=== PATIENT | female | born 1995 | race Caucasian/White ===

== ENCOUNTER 2020-05-21 08:55 | Outpatient (REF) | payer OTHER, SELFPAY ==
[2020-05-22 02:28] LABS: CT PCR NOT DETECTED (Not Detect.); NG PCR NOT DETECTED (Not Detect.)
[2020-05-27 03:12] LABS: HPV 16 RNA NOT DETECTED (NOT DETECTED); HPV mRNA E6/E7 rflx Detected (Not Detected)
== END 2020-05-21 08:56 | disposition home or self-care (01) ==
LOC: HO.LAB 08:55
PROVIDERS: PCP Internal Medicine; Visit Provider Advanced Practice Midwife
DX: Z01.419 Encounter for gynecological examination (general) (routine) without abnormal findings (principal); Z20.2 Contact with and (suspected) exposure to infections with a predominantly sexual mode of transmission; R87.610 Atypical squamous cells of undetermined significance on cytologic smear of cervix (ASC-US); Z30.40 Encounter for surveillance of contraceptives, unspecified
CPT/HCPCS: 87491; 87591; 87624; 87625; 88141; 88142

== ENCOUNTER 2020-07-14 12:02 | Outpatient (REF) | payer OTHER, SELFPAY | END 2020-07-14 12:03 | disposition home or self-care (01) | LOC: HO.LAB 12:02 | PROVIDERS: PCP Internal Medicine; Visit Provider Internal Medicine | DX: Z20.828 Contact with and (suspected) exposure to other viral communicable diseases (principal) | CPT/HCPCS: 36415; C9803; U0003 ==

== ENCOUNTER 2020-07-21 16:26 | Outpatient (REF) | payer OTHER, SELFPAY | END 2020-07-21 16:27 | disposition home or self-care (01) | LOC: HO.LAB 16:26 | PROVIDERS: Visit Provider Internal Medicine | DX: Z20.822 Contact with and (suspected) exposure to COVID-19 (principal) | CPT/HCPCS: 36415; C9803; U0003 ==

== ENCOUNTER 2020-09-02 14:51 | Outpatient (REF) | payer OTHER, SELFPAY | END 2020-09-02 14:52 | disposition home or self-care (01) | LOC: HO.LAB 14:51 | PROVIDERS: PCP Internal Medicine; Visit Provider Obstetrics & Gynecology | DX: R87.610 Atypical squamous cells of undetermined significance on cytologic smear of cervix (ASC-US) (principal); R87.810 Cervical high risk human papillomavirus (HPV) DNA test positive; F41.8 Other specified anxiety disorders | CPT/HCPCS: 57454; 88305; 88342; 88360 ==

== ENCOUNTER → 2021-04-08 08:45 | Outpatient (BNVA) | payer OTHER, SELFPAY | PROVIDERS: PCP Internal Medicine; Visit Provider Nurse Practitioner ==

== ENCOUNTER 2021-04-21 10:07 | Outpatient (REF) | payer OTHER, SELFPAY ==
[2021-04-21 11:03] LABS: MANUAL DIFF FLAG NO
[2021-04-21 11:36] LABS: Basophils Percent Auto 0.3 % (0-2); Eosinophils Absolute Auto 0.2 X10*3/uL (0.0-0.4); Eosinophils Percent Auto 2.2 % (0-4); Hemoglobin 12.8 g/dl (12.0-16.0); Imm Gran Abs Auto 0.02 X10*3/uL (0.00-0.03); Imm Gran Pct Auto 0.2 % (0.0-0.4); Lymphocytes Absolute Auto 1.9 X10*3/uL (1.2-4.9); Lymphocytes Percent Auto 21.3 % (20-40); Mean Corpuscular HGB Conc 33.7 g/dl (31.0-35.0); Mean Corpuscular Volume 80.2 fL (80-98); Mean Platelet Volume 12.2 fL (9.4-12.3); Monocytes Absolute Auto 0.5 X10*3/uL (0.1-1.2); Monocytes Percent Auto 5.6 % (2-11); Neutrophils Absolute Auto 6.2 X10*3/uL (2.0-8.3); Neutrophils Percent Auto 70.4 % (45-73); Platelet Count 251 X10*3/uL (160-400); Red Blood Count 4.74 X10*6/uL (4.20-5.50); Red Cell Distribution Width 12.3 % (11.0-16.0); White Blood Count 8.8 X10*3/uL (4.8-10.8)
[2021-04-21 12:01] LABS: Alanine Aminotransferase 88 U/L (0-31); Albumin Level 4.3 g/dL (3.5-5.0); Alkaline Phosphatase 75 U/L (39-117); Anion Gap 16 (12-20); Aspartate Amino Transferase 57 U/L (5-31); Bilirubin Total 0.5 mg/dL (0.0-1.0); Blood Urea Nitrogen 9 mg/dL (9-16); C Reactive Protein 1.06 mg/dL (< or = 0.50); Calcium 9.6 mg/dL (8.4-10.2); Carbon Dioxide 19 mmol/L (22-29); Chloride 107 mmol/L (96-108); Cholesterol 213 mg/dL; Estimated Glomerular Filt Rate > 60; Glucose Fasting 79 mg/dL (60-99); HDL Cholesterol 55 mg/dL; LDL Cholesterol Calculated 122 mg/dl; Potassium 4.2 mmol/L (3.3-5.1); Sodium 138 mmol/L (135-145); Total Protein 7.6 g/dL (6.5-8.0); Triglycerides 181 mg/dL
[2021-04-21 12:07] LABS: Thyroid Stimulating Hormone 0.77 uIU/mL (0.32-4.0)
[2021-04-26 15:11] LABS: Vitamin D 25-OH, D2 <4 ng/mL; Vitamin D 25-OH, D3 8 ng/mL; Vitamin D 25-OH, Total 8 ng/mL (30-100)
[2021-04-26 16:01] LABS: Transglutaminase Ab IgG <1.0 U/mL; Transglutaminase IgA <1.0 U/mL
== END 2021-04-21 10:08 | disposition home or self-care (01) ==
LOC: HO.LAB 10:07
PROVIDERS: PCP Internal Medicine; Referring Provider Internal Medicine; Visit Provider Nurse Practitioner
DX: R19.7 Diarrhea, unspecified (principal); D64.9 Anemia, unspecified; E73.9 Lactose intolerance, unspecified; K21.9 Gastro-esophageal reflux disease without esophagitis; R10.9 Unspecified abdominal pain; E78.5 Hyperlipidemia, unspecified; E66.9 Obesity, unspecified; E55.9 Vitamin D deficiency, unspecified
CPT/HCPCS: 36415; 80053; 80061; 82306; 83516; 84443; 85025; 86140; 99212

== ENCOUNTER 2021-04-24 | Outpatient (REF) | payer OTHER, SELFPAY | END 2021-04-24 00:01 | disposition home or self-care (01) | LOC: HO.LNP | PROVIDERS: Visit Provider Nurse Practitioner | DX: Z13.89 Encounter for screening for other disorder (principal) ==

== ENCOUNTER → 2021-05-09 14:45 | Outpatient (BNVA) | payer OTHER, SELFPAY | PROVIDERS: PCP Internal Medicine; Referring Provider Internal Medicine; Visit Provider Nurse Practitioner | DX: R10.9 Unspecified abdominal pain (principal); K21.9 Gastro-esophageal reflux disease without esophagitis; K58.2 Mixed irritable bowel syndrome; R79.82 Elevated C-reactive protein (CRP); Z79.899 Other long term (current) drug therapy | CPT/HCPCS: 99212 ==

== ENCOUNTER 2021-08-12 08:43 | Outpatient (REF) | payer OTHER, SELFPAY ==
[2021-08-12 15:39] LABS: CT PCR NOT DETECTED (Not Detect.); NG PCR NOT DETECTED (Not Detect.)
[2021-08-18 12:36] LABS: HPV 16 RNA NOT DETECTED (NOT DETECTED); HPV mRNA E6/E7 rflx Detected (Not Detected)
== END 2021-08-12 08:44 | disposition home or self-care (01) ==
LOC: HO.LAB 08:43
PROVIDERS: PCP Internal Medicine; Visit Provider Advanced Practice Midwife
DX: Z01.419 Encounter for gynecological examination (general) (routine) without abnormal findings (principal); Z11.51 Encounter for screening for human papillomavirus (HPV); Z11.3 Encounter for screening for infections with a predominantly sexual mode of transmission; Z11.8 Encounter for screening for other infectious and parasitic diseases; E55.9 Vitamin D deficiency, unspecified; F41.8 Other specified anxiety disorders
CPT/HCPCS: 87491; 87591; 87624; 87625; 88142

== ENCOUNTER 2021-09-26 08:43 | Outpatient (REF) | payer OTHER, SELFPAY | END 2021-09-26 08:44 | disposition home or self-care (01) | LOC: HO.LAB 08:43 | PROVIDERS: PCP Internal Medicine; Visit Provider Obstetrics & Gynecology | DX: R87.810 Cervical high risk human papillomavirus (HPV) DNA test positive (principal); R87.610 Atypical squamous cells of undetermined significance on cytologic smear of cervix (ASC-US) | CPT/HCPCS: 57454; 88305 ==

== ENCOUNTER → 2021-10-10 14:09 | Outpatient (BNVA) | payer OTHER, SELFPAY | PROVIDERS: Visit Provider Obstetrics & Gynecology | DX: N87.0 Mild cervical dysplasia (principal) | CPT/HCPCS: Q3014 ==

== ENCOUNTER 2021-12-24 05:57 | Emergency (ER) | payer OTHER, SELFPAY ==
[2021-12-24 05:59] VITALS: BP 134/83; PULSE 96; RESP 16; TEMP 36.5; O2SAT 99; BMI 31.2
[2021-12-24 06:32] LABS: COVID-19 Test Negative (Negative); IDNOW Serial# 16C4AD1C; Influenza A Negative (Negative); Influenza B2 Negative (Negative); Strep A Nucleic Acid Negative (Negative)
--- NOTE | 2021-12-24 06:48 | ED.URI ---
HPI - URI/Sore Throat General Chief Complaint: Upper Respiratory Symptoms Stated Complaint: sore throat, lost voice Time Seen by Provider: 12/24/21 06:48 Source: patient Mode of arrival: ambulatory History of Present Illness HPI Narrative: 25-year-old female with history of asthma presents with 1 week of sore throat and intermittent subjective fevers and mild cough. She states that she took 1 COVID-19 test early on in her illness and that was negative. Otherwise, patient denies any shortness of breath, nausea, vomiting or urinary symptoms. Related Data Previous Rx's Medication Instructions Recorded lactase 3,000 unit tablet (Lactaid) 6,000 unit PO QID 30 days #240 tabs 04/08/21 escitalopram oxalate 5 mg tablet 5 mg PO DAILY 90 days #90 tabs 05/08/21 ergocalciferol (vitamin D2) 1,250 1,250 mcg PO QWEEK 90 days #13 caps 05/18/21 mcg (50,000 unit) capsule lorazepam 0.5 mg tablet 0.5 mg PO DAILY PRN anxiety 5 days 08/03/21 #5 tabs norethindrone 1.5 mg-ethinyl 1 tab PO DAILY 28 days #28 tabs 08/12/21 estradiol 30 mcg(21)/iron 75 mg(7) tablet (Junel FE 1.5/30 (28)) dicyclomine 20 mg tablet 20 mg PO TID 30 days #90 tabs 10/31/21 albuterol sulfate 90 mcg/actuation 2 puff inhalation Q6H PRN 11/09/21 aerosol inhaler bronchospasm 30 days #6.7 grams Allergies Allergy/AdvReac Type Severity Reaction Status Date / Time No Known Allergies Allergy Verified 08/12/21 09:06 Review of Systems Review of Systems: Pertinent positives and negatives as stated in HPI 10 point review of systems is otherwise negative. [facility] Past Medical History Source: nursing notes reviewed Medical History Depression with anxiety Surgical History No pertinent past surgical history Family History Family History Father In good health Mother Prediabetes Maternal Grandfather Lung cancer Social History Social History Housing: Apartment Alcohol intake: never Patient Tobacco Use Status: Never used Tobacco e-Cigarette/Vaping Use: Never Used Second Hand Smoke Exposure: No Advance Directives: No service: No Current occupational status: employed Current occupational exposures/hazards: No Sexual orientation: Straight/Heterosexual Gender identity: Female Physical Exam Vital Signs: Vital Signs: Last Vital Signs Temp 97.7 F 12/24/21 05:59 Pulse 96 12/24/21 05:59 Resp 16 12/24/21 05:59 BP 134/83 12/24/21 05:59 Pulse Ox 99 12/24/21 05:59 O2 Del Method 12/24/21 05:59 BMI result Body Mass Index 31.2 VITAL SIGNS: Reviewed. GENERAL: Well developed, well nourished, in no acute distress. HEAD: Normocephalic/atraumatic EYES: PERRLA, EOMI EARS: Ext canals without abnormality, TMs non-bulging and non-erythematous NOSE: Nares patent bilateral OROPHARYNX: no oral lesions noted, posterior pharynx clear and non-erythematous with noted tonsillar erythema But no exudate NECK: Supple, no adenopathy LUNGS: Normal breath sounds. No adventitious sounds or accessory muscle use. SpO2<99> CARDIOVASCULAR: Regular rate and rhythm without noted murmurs ABDOMEN: Soft, non-tender, non-distended with bowel sounds. SKIN: Inspection of the skin reveals no rashes NEUROLOGIC: Alert and oriented x 4. Course Course Course Narrative: 25-year-old female with history and clinical presentation most consistent with viral illness that has resulted in A touch of laryngitis. review of all investigations negative for acute findings to prompted antibiotics or isolation. MDM - URI/Sore Throat Lab Data Labs: Lab Results 12/24/21 12/24/21 12/24/21 Range/Units 06:11 06:11 06:11 COVID-19 (ELBA) Negative (Negative) COVID-19 Clin Com See Note Influenza Type A (AISHA) Negative (Negative) Influenza Type B (AISHA) Negative (Negative) Influenza A & B Note See Note S. pyogenes GrpA AISHA Negative (Negative) Discharge Plan Discharge Clinical Impression: Viral syndrome, Laryngitis Patient Disposition: Home, Self-Care Instructions: Laryngitis (ED), Viral Syndrome (ED) Additional Instructions: 1. resume all home medications as prescribed. You likely or are recovering from a viral illness. 2. Consider saline gargles at home, you can increase this with warm water and table salt any should gargle for 5 minutes, 3 to 4 times a day. 3. Recommend [id number] Tylenol/ ibuprofen as needed for discomfort or any temperatures you measure that are greater than 100.4. Continue stay well hydrated. Return to the ER for worsening symptoms. Prescriptions: No Action escitalopram oxalate 5 mg tablet 5 mg PO DAILY 90 Days Qty: 90 3RF lorazepam 0.5 mg tablet 0.5 mg PO DAILY PRN (Reason: anxiety) 5 Days Qty: 5 0RF dicyclomine 20 mg tablet 20 mg PO TID 30 Days Qty: 90 1RF albuterol sulfate 90 mcg/actuation HFA aerosol inhaler 2 puff inhalation Q6H PRN (Reason: bronchospasm) 30 Days Qty: 6.7 2RF ergocalciferol (vitamin D2) 1,250 mcg (50,000 unit) capsule 1,250 mcg PO QWEEK 90 Days Qty: 13 3RF lactase [Lactaid] 3,000 unit tablet 6,000 unit PO QID 30 Days Qty: 240 6RF Rx Instructions: administer with meals and/or snacks norethindrone-e.estradiol-iron [Junel FE 5/ ()] 1.5 mg-30 mcg (21)/75 mg (7) tablet 1 tab PO DAILY 28 Days Qty: 28 11RF Referrals: Elizabeth Fajardo MD [Primary Care Provider] -
== END 2021-12-24 07:00 | disposition home or self-care (01) ==
PROVIDERS: Emergency Provider Student in an Organized Health Care Education/Training Program; PCP Internal Medicine
DX: B34.9 Viral infection, unspecified (principal); Z20.822 Contact with and (suspected) exposure to COVID-19; J04.0 Acute laryngitis
CPT/HCPCS: 87502; 87635; 87651; 99281; 99283

== ENCOUNTER 2022-04-21 09:54 | Outpatient (REF) | payer OTHER, SELFPAY ==
[2022-04-22 14:25] LABS: BV Int Neg Control Negative (Negative); BV Int Pos Control Positive (Positive)
== END 2022-04-21 09:55 | disposition home or self-care (01) ==
LOC: HO.LNP 09:54
PROVIDERS: Visit Provider Nurse Practitioner Family
DX: N89.8 Other specified noninflammatory disorders of vagina (principal)
CPT/HCPCS: 87480; 87510; 87660

== ENCOUNTER 2022-09-06 09:24 | Outpatient (REF) | payer OTHER, SELFPAY ==
[2022-09-06 14:02] LABS: CT PCR NOT DETECTED (Not Detect.); NG PCR NOT DETECTED (Not Detect.)
[2022-09-19 10:03] LABS: HPV mRNA E6/E7 rflx Detected (Not Detected)
[2022-09-19 10:08] LABS: HPV 16 RNA NOT DETECTED (NOT DETECTED)
== END 2022-09-06 09:25 | disposition home or self-care (01) ==
LOC: HO.LNP 09:24
PROVIDERS: PCP Internal Medicine; Visit Provider Advanced Practice Midwife
DX: Z01.419 Encounter for gynecological examination (general) (routine) without abnormal findings (principal); Z11.51 Encounter for screening for human papillomavirus (HPV); R87.619 Unspecified abnormal cytological findings in specimens from cervix uteri; Z20.2 Contact with and (suspected) exposure to infections with a predominantly sexual mode of transmission
CPT/HCPCS: 0353U; 87624; 87625; 88142

== ENCOUNTER 2022-11-02 13:07 | Outpatient (REF) | payer OTHER, SELFPAY ==
[2022-11-02 14:20] LABS: Alanine Aminotransferase 24 U/L (0-31); Albumin Level 4.1 g/dL (3.5-5.0); Alkaline Phosphatase 65 U/L (39-117); Anion Gap 9 (12-20); Aspartate Amino Transferase 17 U/L (5-31); Bilirubin Total 0.2 mg/dL (0.0-1.0); Blood Urea Nitrogen 13 mg/dL (9-16); Calcium 9.5 mg/dL (8.4-10.2); Carbon Dioxide 25 mmol/L (22-29); Chloride 108 mmol/L (96-108); Estimated Glomerular Filt Rate > 60; Glucose Random 94 mg/dL (60-115); Potassium 4.2 mmol/L (3.3-5.1); Sodium 138 mmol/L (135-145); Total Protein 7.2 g/dL (6.5-8.0)
[2022-11-02 14:34] LABS: TSH reflex Free T4 0.77 uIU/mL (0.32-4.0); Vitamin D 25-OH Total 14.8 ng/mL (>30)
[2022-11-02 18:25] LABS: CT PCR NOT DETECTED (Not Detect.); NG PCR NOT DETECTED (Not Detect.)
[2022-11-03 08:50] LABS: HBS Num1 0.15 mIU/mL (0-7.99); HBc Num1 0.15 S/CO (0.00-0.79); HIV AB/AG Nonreactive (Nonreactive); HIV Num 1 0.05 S/CO (0.00-0.99); Hepatitis B Core Antibody Nonreactive (Nonreactive); Hepatitis B Surface Antigen Negative (Negative); ~Hepatitis B Surface Antibody NONREACTIVE (Nonreactive); ~Hepatitis C Antibody Nonreactive (Nonreactive)
[2022-11-03 08:56] LABS: Syphilis Screen Nonreactive (Nonreactive)
[2022-11-03 11:06] LABS: BV Int Neg Control Negative (Negative); BV Int Pos Control Positive (Positive)
== END 2022-11-02 13:08 | disposition home or self-care (01) ==
LOC: HO.LAB 13:07
PROVIDERS: Obstetrics & Gynecology; PCP Internal Medicine; Visit Provider Nurse Practitioner Family
DX: Z00.00 Encounter for general adult medical examination without abnormal findings (principal); Z11.3 Encounter for screening for infections with a predominantly sexual mode of transmission; Z11.4 Encounter for screening for human immunodeficiency virus [HIV]; Z20.2 Contact with and (suspected) exposure to infections with a predominantly sexual mode of transmission; R31.29 Other microscopic hematuria
CPT/HCPCS: 0353U; 80053; 82306; 84443; 86704; 86706; 86780; 86803; 87340; 87389; 87480; 87510; 87660; 99212

== ENCOUNTER 2022-11-02 14:18 | Outpatient (REF) | payer OTHER, SELFPAY | END 2022-11-02 14:19 | disposition home or self-care (01) | LOC: HO.LNP 14:18 | PROVIDERS: Visit Provider Obstetrics & Gynecology | DX: Z13.89 Encounter for screening for other disorder (principal) ==

== ENCOUNTER 2024-02-27 13:32 | Outpatient (REF) | payer OTHER, SELFPAY ==
[2024-02-27 14:51] LABS: Appearance Urine Turbid; Color Urine Yellow; Glucose Urine UA Negative (Negative); Leukocyte Esterase Urine Moderate (2+) (Negative); Nitrite Urine Negative (Negative); Specific Gravity - Urine >= 1.030 (1.005-1.025); UMIC TRIGGER UACC YES; Urine Blood Trace (Negative); Urine Ketones Negative (Negative); Urine Protein 30 (1+) mg/dL (Neg-Trace)
[2024-02-27 15:11] LABS: Bacteria Urine 2+ (None Seen); Hyaline Casts Urine 0-2 /LPF (0-2); Other Crystals Urine Present; RBC Urine 0-2 /HPF (0-2); Squamous Epithelial Cell Urine >20 /HPF (0-2); UACC Culture Trigger YES
== END 2024-02-27 13:33 | disposition home or self-care (01) ==
LOC: HO.LAB 13:32
PROVIDERS: PCP Internal Medicine; Visit Provider Internal Medicine
DX: R30.0 Dysuria (principal)
CPT/HCPCS: 81001; 87086; 87088; 87186

== ENCOUNTER 2024-04-09 15:53 | Outpatient (REF) | payer OTHER, SELFPAY ==
[2024-04-09 16:46] LABS: Appearance Urine Clear; Color Urine Dark Yellow; Glucose Urine UA Negative (Negative); Leukocyte Esterase Urine Moderate (2+) (Negative); Nitrite Urine Negative (Negative); Specific Gravity - Urine >= 1.030 (1.005-1.025); UMIC TRIGGER UACC YES; Urine Blood Negative (Negative); Urine Ketones Negative (Negative); Urine Protein Negative (Neg-Trace)
[2024-04-09 17:21] LABS: Bacteria Urine Trace (None Seen); Hyaline Casts Urine 0-2 /LPF (0-2); Other Crystals Urine Present; RBC Urine 0-2 /HPF (0-2); UACC Culture Trigger YES
[2024-04-10 08:30] LABS: Syphilis Screen Nonreactive (Nonreactive)
[2024-04-10 08:34] LABS: HIV AB/AG Nonreactive (Nonreactive); HIV Num 1 0.04 S/CO (0.00-0.99)
== END 2024-04-09 15:54 | disposition home or self-care (01) ==
LOC: HO.LAB 15:53
PROVIDERS: PCP Internal Medicine; Visit Provider Physician Assistant
DX: Z20.2 Contact with and (suspected) exposure to infections with a predominantly sexual mode of transmission (principal); N89.8 Other specified noninflammatory disorders of vagina; R30.0 Dysuria
CPT/HCPCS: 36415; 81001; 86780; 87086; 87389; 87491; 87591

== ENCOUNTER 2024-05-20 14:27 | Outpatient (AMB) | payer OTHER, SELFPAY ==
--- NOTE | 2024-05-20 14:33 | MHC.OFFVIS ---
Vital Signs 05/20/24 14:39 BP 116/70 Intake Visit Reasons: Colposcopy/DO NOT RS Allergies No Known Allergies Allergy (Verified 11/02/22 14:03) HPI Comments Details: Presenting for colposcopy for abnormal Pap smear showing LSIL HPV positive in 09/28. [facility] Medical History Abnormal Pap smear of cervix Hypovitaminosis D Transaminitis Mild persistent asthma SUPRIYA (generalized anxiety disorder) Mild recurrent major depression Obese Depression with anxiety Surgical History No pertinent past surgical history Family History Father In good health Mother Prediabetes Maternal Grandfather Lung cancer Social History Housing: Apartment Alcohol intake: never Patient Tobacco Use Status: Never used Tobacco e-Cigarette/Vaping Use: Never Used Second Hand Smoke Exposure: No service: No Current occupational status: employed Current occupational exposures/hazards: No Sexual orientation: Straight/Heterosexual Gender identity: Female Cognitive needs: No Hearing needs: No Vision needs: No Female Reproductive History Menstrual Duration of menses: 6-7 days Date of last menstrual period: 04/25/24 Review of Systems Const All systems reviewed & are unremarkable except as noted in HPI and below Reports as per HPI and Reports no additional complaints GI Reports no additional complaints Reports no additional complaints Physical Exam Vital Signs: Last Vital Signs BP 116/70 05/20/24 14:39 Office Procedures Colposcopy Colposcopy: Pre-Procedure Counseling: Before beginning the procedure, I conducted comprehensive counseling with the patient. We thoroughly discussed the procedure itself, including its details, alternatives, and all associated risks. This included but not limited to the following complications such as bleeding, infection, and injury to the vagina, bladder, and vessels, as well as the potential need for transfusion with all its associated risks. Subsequently, the patient sign the consent. Pap smear result: LSIL/HPV E6 E7 positive. Urine test in office = Negative Procedure: During the procedure, the following steps were performed: A speculum was inserted, and acetic acid was applied. Colposcopy was conducted, allowing visualization of the transformation zone. Acetowhite lesions were identified at the 7+9+11+3 o'clock position. Cervical biopsies were obtained from the 7+9+11+3 o'clock position, followed by an endocervical curettage (ECC). Vaginoscopy of the upper vagina revealed no evidence of aceto-white lesions. Hemostasis was achieved using Monsel solution, and the patient tolerated the procedure well. Post-Procedure Instructions: The patient was advised to promptly contact the office or the after hours answering service or go to the emergency room if experiencing a temperature exceeding 100.4?F, abdominal pain, nausea/vomiting, or bleeding. Additionally, the patient was instructed to abstain from vaginal intercourse and bathtub use. The patient confirmed understanding of these instructions. Discharge Instructions: The patient was instructed to schedule a follow-up appointment in 2 weeks for further evaluation and management. Please note that this note was generated using a voice recognition program, and errors may have occurred during clinical medical transcriptionist. [id number] of cervix including upper vagina with biopsy and ECC Procedure code (CPT) selection complete Results AMB Test Urine AMB Test Urine Negative Last Edit by Laura Londono CMA on 05/20/24 15:00 Assessment & Plan Assessment & Plan (1) LGSIL on Pap smear of cervix: Comment: HPV E6/E7 positive Code(s): R87.612 - Low grade squamous intraepithelial lesion on cytologic smear of cervix (LGSIL) Category: Medical Plan: Discussed with the patient the result of her abnormal pap, its significance, risk of progression, persistence, and regression. the false positive/negative rate of a Pap smear as a screening test in detecting cervical cancer and the indication for a diagnostic test -colposcopy, biopsy, endocervical curettage.The patient verbalized understanding and agreed with the plan, all questions answered. Since co testing was done in 09/28, co testing were repeated and colposcopy was done, see procedure note. Orders: Orders AMB HCG Urine Test Today Z32.02 - Encounter for test, result negative AMB Colposcopy Today R87.612 - Low grade squamous intraepithelial lesion on cytologic smear of cervix (LGSIL) Coding Level of Care Code Est Pt Level 3 (31359) Procedure Only Diagnoses LGSIL on Pap smear of cervix R87.612 CPT Codes Colposcopy - CPT: 69191-[id number] of cervix including upper vagina with biopsy and ECC ([id number])
[2024-05-20 14:39] VITALS: BP 116/70
== END 2024-05-20 15:02 | disposition home or self-care (01) ==
LOC: HO.HWS 14:27
PROVIDERS: PCP Internal Medicine; Visit Provider Obstetrics & Gynecology
DX: R87.612 Low grade squamous intraepithelial lesion on cytologic smear of cervix (LGSIL) (principal); Z32.02 Encounter for pregnancy test, result negative
CPT/HCPCS: 57454; 99213

== ENCOUNTER 2024-05-20 14:27 | Outpatient (REF) | payer OTHER, SELFPAY ==
[2024-05-22 10:49] LABS: HPV 16,18/45 See PAP report
== END 2024-05-20 14:28 | disposition home or self-care (01) ==
LOC: HO.LNP 14:27
PROVIDERS: PCP Internal Medicine; Visit Provider Obstetrics & Gynecology
DX: R87.619 Unspecified abnormal cytological findings in specimens from cervix uteri (principal); R87.612 Low grade squamous intraepithelial lesion on cytologic smear of cervix (LGSIL)
CPT/HCPCS: 57454; 81025; 87624; 88175; 88305; 88342; 88360

== ENCOUNTER 2024-05-27 15:41 | Outpatient (AMB) | payer OTHER, SELFPAY ==
--- NOTE | 2024-05-27 15:52 | MHC.OFFVIS ---
Vital Signs 05/27/24 15:55 Height 5 ft 2 in Weight 120 lb BMI 21.9 BP 116/74 Intake Visit Reasons: pre op /leep Contracts Attorney Required: No Information Interpreted: non-clinical & clinical Director Digital Strategy: Director Digital Strategy Present Accompanied by: Self / Same As Patient Allergies No Known Allergies Allergy (Verified 05/27/24 15:56) Is last menstrual period known: Yes Last menstrual period: 04/27/24 Post menopausal: No Patient : No Do you need a note to return to daycare/school/sports/work: Yes (for surgery on sunday) HPI Comments Details: Presenting for follow-up Co testing: Low-grade JULITA can not exclude high-grade JULITA with HPV high-risk positive, HPV 16/18/45 negative Colposcopy biopsy ECC pathology showed the following: A. Endocervix, curettage: Fragments of benign endocervical glands, negative for squamous intraepithelial lesion. B. Cervix, 3 o'clock, biopsy: Squamous mucosa with reactive epithelial changes; no endocervical component seen; negative for squamous intraepithelial lesion. C. Cervix, 7 o'clock, biopsy: High-grade squamous intraepithelial lesion (GIANCARLO 2). D. Cervix, 9 o'clock, biopsy: Minute fragment of benign endocervical mucosa; no squamous mucosa seen; negative for squamous intraepithelial lesion. E. Cervix, 11 o'clock, biopsy: Chronic cervicitis, negative for squamous intraepithelial lesion. COMMENT: The atypical cells noted in the patient's previous Pap smear ([id number]; LGSIL; HPV+) correlate with the current biopsy findings [facility] Medical History Abnormal Pap smear of cervix Hypovitaminosis D Transaminitis Mild persistent asthma SUPRIYA (generalized anxiety disorder) Mild recurrent major depression Obese Depression with anxiety Surgical History No pertinent past surgical history Family History Father In good health Mother Prediabetes Maternal Grandfather Lung cancer Social History Housing: Apartment Alcohol intake: never Patient Tobacco Use Status: Never used Tobacco e-Cigarette/Vaping Use: Never Used Second Hand Smoke Exposure: No service: No Current occupational status: employed Current occupational exposures/hazards: No Sexual orientation: Straight/Heterosexual Gender identity: Female Cognitive needs: No Hearing needs: No Vision needs: No Female Reproductive History Menstrual Date of last menstrual period: 04/27/24 control method: pills Total pregnancies: 2 Full term: 2 Review of Systems Card Reports as per HPI and Reports no additional complaints Resp Reports as per HPI and Reports no additional complaints GI Reports as per HPI and Reports no additional complaints Reports as per HPI Physical Exam Vital Signs: Last Vital Signs BP 116/74 05/27/24 15:55 BMI result Body Mass Index 21.9 Const General: cooperative, healthy appearing and comfortable Resp Effort & Inspection: normal respiratory effort Auscultation: clear to auscultation bilaterally Percussion: percussion normal Cardio Palpation: normal PMI Rate: regular rate Rhythm: regular rhythm Heart sounds: no murmurs and no rubs Peripheral pulses: Peripheral pulses 2+ throughout GI Inspection: Yes normal to inspection Palpation (GI): Soft to palpation, nontender, no guarding, not rigid and No hepatosplenomegaly present Percussion: Yes normal to percussion Auscultation: normal bowel sounds Rectal Exam - Female: deferred Assessment & Plan Assessment & Plan (1) GIANCARLO II (cervical intraepithelial neoplasia II): Code(s): N87.1 - Moderate cervical dysplasia Category: Medical Plan: Discussed with the patient the pathology results of the colposcopy biopsies & endocervical curettage ( moderate dysplasia-GIANCARLO 2). Discussed with the patient the sensitivity specificity, positive and negative predictive value in detecting cervical cancer in addition discussed the regression, persistence and progression rates. Addition discussed with the patient the risk of progression to cancer and impact of excision procedure on her future . Per ASCCP guidelines, 2 options of management were discussed with the patient including either observation with HPV based screening and colposcopy biopsy at 6 months and 12 months versus a diagnostic excisional procedures, which is the preferred method of management. The patient is concerned more about the progression of GIANCARLO 2 to cancer than the excisional procedure impact on her future and she decided to proceed with a LEEP, possible cone with post cone ECC, all the pros and cons and risks and benefits of the procedure were discussed with the patient, the patient verbalized understanding and agreed with the plan Will proceed with LEEP possible cone with post cone ECC. Discussed with the patient the procedure, its benefits and risks including bleeding, infection, possible need for blood transfusion with all its risk ( HIV, syphilis, Hepatitis, anaphylaxis shock, others..), injury to bladder, rectum, possible re-excision for positive margins, potential need for hysterectomy, possible future negative impact on fertility including ( cervical stenosis, incompetence , increase risk for c section 2ndary to cervical scarring and failure of dilatation), possible positive margin necessitating re-excision. Also discussed the patient options of anesthesia either paracervical block versus IV sedation/MAC, prefers to proceed with IV sedation/MAC. All questions answered, the patient verbalized understanding and signed the consent. Coding Level of Care Code Est Pt Level 3 (28586) Diagnoses GIANCARLO II (cervical intraepithelial neoplasia II) N87.1
[2024-05-27 15:55] VITALS: BP 116/74; BMI 21.9
== END 2024-05-27 16:14 | disposition home or self-care (01) ==
LOC: HO.HWS 15:41
PROVIDERS: PCP Internal Medicine; Visit Provider Obstetrics & Gynecology
DX: N87.1 Moderate cervical dysplasia (principal)
CPT/HCPCS: 99213

== ENCOUNTER → 2024-05-27 15:41 | Outpatient (BNVA) | payer OTHER, SELFPAY | PROVIDERS: PCP Internal Medicine; Visit Provider Obstetrics & Gynecology ==

== ENCOUNTER 2024-06-20 10:21 | Day surgery (SDC) | payer OTHER, SELFPAY ==
--- NOTE | 2024-06-18 11:50 | P.CONAN_ITS ---
Documented by User: Jeannette Paez NP 06/18/24 11:50 HPI - Anesthesia Eval Consult details Narrative: 28yo F for LEEP,poss loop electric excision,poss loop electrical,cone and post endocervical curettage PMFSH Active Problems Active Problems: All Active Problems GIANCARLO II (cervical intraepithelial neoplasia II) (Acute) LGSIL on Pap smear of cervix (Acute) Anxiety (Acute) Low vitamin D level (Acute) Microscopic hematuria (Acute) Abnormal Pap smear of cervix (Acute) Bacterial vaginosis (Acute) Groin rash (Acute) Vaginal discharge (Acute) Routine screening for STI (sexually transmitted infection) (Acute) Adult general medical exam (Acute) Dysplasia of cervix, low grade (GIANCARLO 1) (Acute) ASCUS with positive high risk HPV cervical (Acute) Hypovitaminosis D (Acute) Transaminitis (Acute) Irritable bowel syndrome with both constipation and diarrhea (Acute) Elevated C-reactive protein (CRP) (Acute) Lactose intolerance (Acute) Mild persistent asthma (Acute) SUPRIYA (generalized anxiety disorder) (Acute) Mild recurrent major depression (Acute) Obese (Acute) GERD (gastroesophageal reflux disease) (Acute) Abdominal cramping (Acute) Past Medical History Medical History Abnormal Pap smear of cervix Hypovitaminosis D Transaminitis Mild persistent asthma SUPRIYA (generalized anxiety disorder) Mild recurrent major depression Obese Depression with anxiety Family History Family History Father In good health Mother Prediabetes Maternal Grandfather Lung cancer Surgical History Surgical History No pertinent past surgical history Social History Social History Housing: Apartment Alcohol intake: never Patient Tobacco Use Status: Never used Tobacco e-Cigarette/Vaping Use: Never Used Second Hand Smoke Exposure: No Use of substances other than those prescribed or required for medical reasons: No Are you DNR?: No Advance Directives: No Advance Directives Information Provided: Yes Recently lost weight without trying: No service: No Current occupational status: employed Current occupational exposures/hazards: No Sexual orientation: Straight/Heterosexual Gender identity: Female Cognitive needs: No Hearing needs: No Vision needs: No Meds Allergies Allergy/AdvReac Type Severity Reaction Status Date / Time No Known Allergies Allergy Verified 06/20/24 10:41 Assessment and Plan Assessment Anesthesia Assessment: Chart Reviewed Documented by User: Amadou Del Toro MD 06/20/24 12:41 [facility], [facility] Past Medical History Medical History Abnormal Pap smear of cervix Hypovitaminosis D Transaminitis Mild persistent asthma SUPRIYA (generalized anxiety disorder) Mild recurrent major depression Obese Depression with anxiety Patient : No Family History Family History Father In good health Mother Prediabetes Maternal Grandfather Lung cancer Family history of problems with anesthesia: No Surgical History Surgical History No pertinent past surgical history History of Problems with Anesthesia: No Social History Social History Housing: Apartment Alcohol intake: never Patient Tobacco Use Status: Never used Tobacco e-Cigarette/Vaping Use: Never Used Second Hand Smoke Exposure: No Use of substances other than those prescribed or required for medical reasons: No Are you DNR?: No Advance Directives: No Advance Directives Information Provided: Yes Recently lost weight without trying: No service: No Current occupational status: employed Current occupational exposures/hazards: No Sexual orientation: Straight/Heterosexual Gender identity: Female Cognitive needs: No Hearing needs: No Vision needs: No Meds Allergies Allergy/AdvReac Type Severity Reaction Status Date / Time No Known Allergies Allergy Verified 06/20/24 10:41 Exam Airway Mallampati Class: II TM Dist: <=3cm Neck ROM: Full Loose/Missing/Broken Teeth: No Heart: ok Lungs: ok Assessment and Plan Assessment Anesthesia Assessment: Anesthesia Plan Discussed Final Anesthetic Review Family History of Problems with Anesthesia: No History of Problems with Anesthesia: No NPO: Yes ASA Class: II Final Preanesthetic Review: No Changes in Pt Med Stat, Meds/Allgs Chart Reviewed, Consent Obtained/Reviewed and Anes Risks/Benef Reviewed Patient Risk: Low Procedure Risk: Low Anesthetic Plan Anesthetic Plan: GA and Agree w/ Assess. and Plan Disposition: Standard PACU
[2024-06-18 14:41] VITALS: BMI 21.9
[2024-06-20 10:41] VITALS: BMI 21.4
[2024-06-20 11:00] VITALS: BP 107/78; PULSE 73; RESP 15; TEMP 36.6; O2SAT 99
[2024-06-20 11:14] LABS: UPreg QC Valid YES; Urine Pregnancy NEGATIVE (NEGATIVE)
[2024-06-20] MEDS: Lactated Ringers 1,000 ML 100 ML IVCONT (11:14)
--- NOTE | 2024-06-20 11:54 | MHC.SHP ---
Pre-Procedural Eval Section A - 24 Hr Update-Section A only Date of Service: 06/20/24 The patient is an INPATIENT: No Changes since office visit: No Cold of Flu in the past 2 weeks, No New Medical Problems, No Changes in Medication and No Patient answered all questions The patient has been examined within 24 hours of the surgical procedure. The History & Physical has been completed within 30 days and I have reviewed it.: Yes Section B - Complete if H&P > 30 days Chief Complaint: Moderate cervical dysplasia Allergies: Allergies Allergy/AdvReac Type Severity Reaction Status Date / Time No Known Allergies Allergy Verified 06/20/24 10:41 Plan Diagnosis/Plan: Unchanged I have reviewed the history and physical and performed a pertinent physical examination on my patient. No changes have occurred unless specified. Time Spent With Patient Time: Total time managing care of this patient today ____ minutes.
--- NOTE | 2024-06-20 12:49 | PM.OP ---
Brief Operative Note Date of Service: 06/20/24 Pre-op diagnosis: GIANCARLO 2 Post-op diagnosis: same Procedure: LEEP CONE with post CONE ECC Surgeon: Anthony Siddiqui MD Anesthesia: GLMA and other (Paracervical block) Was an [employer] Production Technician used for this Procedure?: No Estimated blood loss (mL): 0 Pathology: other (Cervical cone, top-hat, Post cone ECC) Condition: stable Disposition: other (Home)
--- NOTE | 2024-06-20 12:50 | P.OP_ITS ---
Operative Note Operative Note Date of Service: 06/20/24 Narrative: Pre op diagnosis: GIANCARLO 2 Operation: LEEP cone with, top hat endocervical excision, post cone ECC Postop diagnosis: the same Quantitative blood loss: 50 cc Surgeon: Anthony Siddiqui MD, FACOG [employer]: None Pathology: Cervical cone, top-hat endo cervical excision, endo cervical curettage Complications: none Anesthesia: GLMA and Para cervical block Procedure: The patient was put in a dorsal lithotomy position, scrubbed and draped in the usual sterile fashion. A speculum was inserted inside the patient's vagina. The cervix is assessed using the colposcope with acetic acid , the lesions were seen, and at least 1 cm of the squamocolumnar junction was observed. 20 x 5 mm size loop was selected based upon the diameter of the lesion. Lugol solution was used to outline the lesions and area of the transformation zone order to be removed 10 cc of xylocaine with epinephrine were injected submucosally into the surface of the cervix (ectocervix) at the 3, 6, 9, and 12 o'clock positions. The electrosurgical generator is set at 30 to 40 go on blend 1. The loop is carefully passed simultaneously around and under the transformation zone, in order to ensure excising it making sure the lesion is at least 5 mm far from the specimen margins . The loop was allowed to glide through the cervix from one side to the other, allowing the cutting current to divide the tissue. Since ECC was positive and the entire endo cervical canal was not visualized well, endo cervical disease could be beyond the reach of the loop, additional tissue was excised from this area with a smaller-diameter loop , endo cervical top-hat excision was performed An endo cervical curettage is performed following completion of excision, and hemostasis is obtained with a Ball electrode or regular tip cautery. At the end, Monsel's solution was applied to the cone bed. The patient tolerated the procedure well and, all instruments were taken out of the patient vaginal cavity, and the patient was transferred to the PACU in stable condition.
[2024-06-20 12:53] VITALS: BP 81/39; PULSE 83; RESP 18; TEMP 36.1; O2SAT 99
[2024-06-20 12:58] VITALS: BP 82/42; PULSE 70; RESP 16; O2SAT 100
[2024-06-20 13:03] VITALS: BP 87/53; PULSE 69; RESP 18; O2SAT 100
[2024-06-20 13:08] VITALS: BP 95/45; PULSE 64; RESP 18; O2SAT 100
[2024-06-20 13:23] VITALS: BP 100/72; PULSE 60; RESP 18; TEMP 36.9; O2SAT 100
== END 2024-06-20 14:15 | disposition home or self-care (01) ==
PROVIDERS: PCP Internal Medicine; Visit Provider Obstetrics & Gynecology
PROC: 0UBC7ZZ Excision of Cervix, Via Natural or Artificial Opening (ICD-10-PCS; CPT 57522; principal; 2024-06-20 12:30)
DX: N87.0 Mild cervical dysplasia (principal); N87.9 Dysplasia of cervix uteri, unspecified; J45.30 Mild persistent asthma, uncomplicated; E55.9 Vitamin D deficiency, unspecified; R74.01 Elevation of levels of liver transaminase levels; F33.0 Major depressive disorder, recurrent, mild; F41.9 Anxiety disorder, unspecified; Z79.899 Other long term (current) drug therapy
CPT/HCPCS: 57522; 81025; 88305; 88307; J1885; J2003; J2004; J2405; J2704; J3010

== ENCOUNTER → 2024-06-20 10:21 | Outpatient (BNV) | payer OTHER, SELFPAY | PROVIDERS: PCP Internal Medicine; Visit Provider Obstetrics & Gynecology | DX: N87.1 Moderate cervical dysplasia (principal) | CPT/HCPCS: 57522 ==

== ENCOUNTER 2024-07-16 09:05 | Outpatient (AMB) | payer OTHER, SELFPAY ==
--- NOTE | 2024-07-16 09:06 | A.OFFVIS_ITS ---
Vital Signs 07/16/24 09:07 Height 5 ft 2 in Weight 120 lb BMI 21.9 Intake Visit Reasons: post op Orthotics Assistant Required: No Information Interpreted: non-clinical & clinical Accompanied by: Self / Same As Patient Allergies No Known Allergies Allergy (Verified 07/16/24 09:08) HPI Comments Details: The patient is presenting for follow-up post LEEP cone. The patient has no complaints. Pap was ASCUS can not rule out high-grade with HPV positive, The patient had GIANCARLO 2 on colpo biopsy, LEEP path showed the following: A. Cervix, conization: -Low grade squamous intraepithelial lesion (mild dysplasia, GIANCARLO I), involving endocervical glands. -Ectocervical margin: Free of dysplasia. -Endocervical margin: Positive for dysplasia. -Radial (deep stromal) margin: Free of dysplasia. -Previous biopsy site changes. B. Cervix, top-hat excision: -Endocervical glandular mucosa; negative for dysplasia. C. Endocervix, curettage: -Endocervical glandular mucosa; negative for dysplasia. Comment: The dysplastic cells in the previous Pap ([id number]) concur with the current biopsy [facility] Medical History Abnormal Pap smear of cervix Hypovitaminosis D Transaminitis Mild persistent asthma SUPRIYA (generalized anxiety disorder) Mild recurrent major depression Obese Depression with anxiety Surgical History No pertinent past surgical history Family History Father In good health Mother Prediabetes Maternal Grandfather Lung cancer Social History Housing: Apartment Alcohol intake: never Patient Tobacco Use Status: Never used Tobacco e-Cigarette/Vaping Use: Never Used Second Hand Smoke Exposure: No service: No Current occupational status: employed Current occupational exposures/hazards: No Sexual orientation: Straight/Heterosexual Gender identity: Female Cognitive needs: No Hearing needs: No Vision needs: No Review of Systems Const All systems reviewed & are unremarkable except as noted in HPI and below Reports as per HPI and Reports no additional complaints GI Reports no additional complaints Reports no additional complaints Physical Exam Vital Signs: BMI result Body Mass Index 21.9 Assessment & Plan Assessment & Plan (1) GIANCARLO II (cervical intraepithelial neoplasia II): Comment: Status post LEEP pathology showed GIANCARLO 1 with positive margin Code(s): N87.1 - Moderate cervical dysplasia Category: Medical Plan: Discussed with the patient the procedure and the pathology with + GIANCARLO 1 margins. Discussed with the patient ASCCP treatment options include not limited to: either repeat LEEP versus 6 months follow-up with HPV based screening with colpo biopsy and ECC. All the pros and cons risks benefits of each approach were discussed the patient and the patient decided to proceed with 6 months HPV based screening with colposcopy biopsy and ECC. Instructions given the patient to schedule a six-month appointment for co testing/colpo biopsy/ECC. All questions were answered, the patient verbalized understanding. Coding Level of Care Code Est Pt Level 3 (13788) Diagnoses GIANCARLO II (cervical intraepithelial neoplasia II) N87.1
[2024-07-16 09:07] VITALS: BMI 21.9
== END 2024-07-16 09:23 | disposition home or self-care (01) ==
LOC: HO.HWS 09:05
PROVIDERS: PCP Internal Medicine; Visit Provider Obstetrics & Gynecology
DX: N87.1 Moderate cervical dysplasia (principal)
CPT/HCPCS: 99024

== ENCOUNTER 2025-02-25 09:06 | Outpatient (REF) | payer OTHER, SELFPAY | END 2025-02-25 09:07 | disposition home or self-care (01) | LOC: HO.LNP 09:06 | PROVIDERS: PCP Internal Medicine; Visit Provider Obstetrics & Gynecology | DX: N87.1 Moderate cervical dysplasia (principal); R87.810 Cervical high risk human papillomavirus (HPV) DNA test positive; Z32.02 Encounter for pregnancy test, result negative | CPT/HCPCS: 57454; 81025; 87626; 88175; 88305 ==

== ENCOUNTER 2025-02-25 09:06 | Outpatient (AMB) | payer OTHER, SELFPAY ==
--- NOTE | 2025-02-25 09:21 | MHC.OFFVIS ---
Vital Signs 02/25/25 09:28 Height 5 ft 2 in Weight 120 lb BMI 21.9 Intake Visit Reasons: colpo/cotest Ring Cutter Lathe Operator Required: No Information Interpreted: non-clinical & clinical Air Turning Machine Feeder: Air Turning Machine Feeder Present (Radha) Accompanied by: Self / Same As Patient Allergies No Known Allergies Allergy (Verified 02/25/25 09:29) HPI Comments Details: Presenting for co testing/colposcopy The patient has following abnormal cervical cytology history: 04/26 ascus 05/28 ascus +hpv 2 colpo 08/30 ascus +hpv 09/27 colpo GIANCARLO LSIL r/o HGSIL HPV +, colpo bx= GIANCARLO 2 06/01 LSIL rule out high-grade JULITA, colpo biopsy GIANCARLO 2, LEEP pathology GIANCARLO 1 positive endocervical margins [facility] Medical History Abnormal Pap smear of cervix Hypovitaminosis D Transaminitis Mild persistent asthma SUPRIYA (generalized anxiety disorder) Mild recurrent major depression Obese Depression with anxiety Surgical History No pertinent past surgical history Family History Father In good health Mother Prediabetes Maternal Grandfather Lung cancer Social History Housing: Apartment Alcohol intake: never Patient Tobacco Use Status: Never used Tobacco e-Cigarette/Vaping Use: Never Used Second Hand Smoke Exposure: No service: No Current occupational status: employed Current occupational exposures/hazards: No Sexual orientation: Straight/Heterosexual Gender identity: Female Cognitive needs: No Hearing needs: No Vision needs: No Review of Systems Const All systems reviewed & are unremarkable except as noted in HPI and below Physical Exam General: Yes no CVA tenderness External Female Exam: normal external appearance and normal appearance of the urethra Speculum Exam - Vagina: normal appearance of the vagina, normal palpation, no lesions and no masses Speculum Exam - Cervix: normal appearance of the cervix, normal palpation, no lesions, no masses and nontender Bimanual exam- vagina & uterus: normal bimanual exam, normal palpation, uterine size normal, normal palpation, uterine shape normal, No Cervical tenderness present and non-tender Bimanual Exam- Adnexa, other: normal adnexae Back/Spine/Pelvis Back: no CVA tenderness Office Procedures Colposcopy Colposcopy: Pre-Procedure Counseling: Before beginning the procedure, I conducted comprehensive counseling with the patient. We thoroughly discussed the procedure itself, including its details, alternatives, and all associated risks. This included but not limited to the following complications such as bleeding, infection, and injury to the vagina, bladder, and vessels, as well as the potential need for transfusion with all its associated risks. Subsequently, the patient sign the consent. Pap smear result: GIANCARLO 2 status post LEEP with GIANCARLO 1 and positive endocervical margin in 07/01 Procedure: During the procedure, the following steps were performed: A speculum was inserted, and acetic acid was applied. Colposcopy was conducted, allowing visualization of the transformation zone. Acetowhite lesions were identified at the 5+6+7+12+1+3 o'clock position. Cervical biopsies were obtained from the 5+6+7+12+1+3 o'clock position, followed by an endocervical curettage (ECC). Vaginoscopy of the upper vagina revealed no evidence of aceto-white lesions. Hemostasis was achieved using Monsel solution, and the patient tolerated the procedure well. Post-Procedure Instructions: The patient was advised to promptly contact the office or the after hours answering service or go to the emergency room if experiencing a temperature exceeding 100.4?F, abdominal pain, nausea/vomiting, or bleeding. Additionally, the patient was instructed to abstain from vaginal intercourse and bathtub use. The patient confirmed understanding of these instructions. Discharge Instructions: The patient was instructed to schedule a follow-up appointment in 2 weeks for further evaluation and management. Please note that this note was generated using a voice recognition program, and errors may have occurred during driver's license examiner. [id number] of cervix including upper vagina with biopsy and ECC Procedure code (CPT) selection complete Results AMB Test Urine AMB Test Urine Negative Last Edit by Laura Londono CMA on 02/25/25 09:28 Results Reviewed Results Reviewed: Laboratory Last Values Tst Clinic Negative 02/25/25 09:28 Assessment & Plan Assessment & Plan (1) GIANCARLO II (cervical intraepithelial neoplasia II): Comment: Status post LEEP pathology showed GIANCARLO 1 with positive margin in 07/01 Code(s): N87.1 - Moderate cervical dysplasia Category: Medical Plan: Co testing colposcopy done, see procedure note Orders: Orders AMB Colposcopy Today N87.1 - Moderate cervical dysplasia AMB HCG Urine Test Today Z32.02 - Encounter for test, result negative Coding Level of Care Code Est Pt Level 3 (87077) Procedure Only Diagnoses GIANCARLO II (cervical intraepithelial neoplasia II) N87.1 CPT Codes Colposcopy - CPT: 59094-[id number] of cervix including upper vagina with biopsy and ECC ([id number])
[2025-02-25 09:28] VITALS: BMI 21.9
== END 2025-02-25 09:56 | disposition home or self-care (01) ==
LOC: HO.HWS 09:07
PROVIDERS: PCP Internal Medicine; Visit Provider Obstetrics & Gynecology
DX: N87.1 Moderate cervical dysplasia (principal); Z32.02 Encounter for pregnancy test, result negative
CPT/HCPCS: 57454

== ENCOUNTER 2025-03-10 14:51 | Outpatient (AMB) | payer OTHER, SELFPAY ==
--- NOTE | 2025-03-10 14:51 | A.OFFVIS_ITS ---
Intake Visit Reasons: colpo results Intake Note: [phone] Allergies No Known Allergies Allergy (Verified 02/25/25 09:29) Is last menstrual period known: Yes Last menstrual period: 02/18/25 HPI Comments Details: The patient is schedule telehealth visit post co testing/ colpo for follow-up. The patient is doing well with no complaints. The pathology showed the following: A. Endocervix, curettage: Scant endocervical glandular mucosa; negative for dysplasia; no squamous epithelium present. B. Cervix, 1:00, biopsy: Squamous and endocervical glandular mucosa with reactive changes; negative for dysplasia. C. Cervix, 3:00, biopsy: Squamous and endocervical glandular mucosa with reactive changes; negative for dysplasia D. Cervix, 5:00, biopsy: Squamous and endocervical glandular mucosa with reactive changes; negative for dysplasia. E. Cervix, 6:00, biopsy: Squamous and endocervical glandular mucosa with reactive changes; negative for dysplasia F. Cervix, 7:00, biopsy: Squamous and endocervical glandular mucosa with reactive changes and focal parakeratosis; negative for dysplasia. G. Cervix, 12:00, biopsy: Squamous mucosa with focal parakeratosis; negative for dysplasia; no endocervical glandular mucosa present. Comment: The patient's current pending and previous Pap tests will be reviewed; addendum to follow. Co testing was negative [facility] Medical History (Updated 03/10/25 @ 15:06 by Anthony Siddiqui MD) Abnormal Pap smear of cervix Hypovitaminosis D Transaminitis Mild persistent asthma SUPRIYA (generalized anxiety disorder) Mild recurrent major depression Obese Depression with anxiety Surgical History No pertinent past surgical history Family History Father In good health Mother Prediabetes Maternal Grandfather Lung cancer Social History Housing: Apartment Alcohol intake: never Patient Tobacco Use Status: Never used Tobacco e-Cigarette/Vaping Use: Never Used Second Hand Smoke Exposure: No service: No Current occupational status: employed Current occupational exposures/hazards: No Sexual orientation: Straight/Heterosexual Gender identity: Female Cognitive needs: No Hearing needs: No Vision needs: No Female Reproductive History Menstrual Date of last menstrual period: 02/18/25 Review of Systems Const All systems reviewed & are unremarkable except as noted in HPI and below Reports as per HPI and Reports no additional complaints GI Reports no additional complaints Reports no additional complaints Telehealth Telehealth Telehealth [facility] Location of provider rendering services: practice address Location of patient: address on file Patient Identification confirmed using: Name, : Yes Telehealth method: video Patient verbally consented to treatment: Yes Patient verbally consented to billing insurance company: Yes Patient informed of any privacy concerns related to visit: Yes Minutes spent on Phone/Video with Pt.: 2 Assessment & Plan Assessment & Plan (1) GIANCARLO II (cervical intraepithelial neoplasia II): Comment: Status post LEEP pathology showed GIANCARLO 1 with positive margin in 07/01 Code(s): N87.1 - Moderate cervical dysplasia Category: Medical Plan: Discussed with the patient the results of the co testing and colpo biopsy ECC pathology. Discussed with the patient the sensitivity specificity, positive and negative predictive value in detecting cervical cancer in addition discussed the regression, persistence and progression rates. Recommended co-testing in 12 months, if cytology and or HPV are abnormal will proceed was colposcopy biopsy and endocervical curettage. Instructions given to the patient to schedule a co test appointment in 1 year. All questions answered the patient verbalized understanding. recommended co testing in a year I spent a total of 20 minutes reviewing the chart, talking to the patient via video and documenting in the medical record. Coding Level of Care Code Tele Est Pt Level 3 (08161) Diagnoses GIANCARLO II (cervical intraepithelial neoplasia II) N87.1
== END 2025-03-10 15:24 | disposition home or self-care (01) ==
LOC: HO.HWS 14:51
PROVIDERS: PCP Internal Medicine; Visit Provider Obstetrics & Gynecology
DX: N87.1 Moderate cervical dysplasia (principal)
CPT/HCPCS: 99213

== ENCOUNTER 2025-04-06 16:31 | Outpatient (AMB) | payer OTHER, SELFPAY ==
[2025-04-06 16:41] VITALS: BP 118/70; PULSE 70; O2SAT 98; BMI 25.1
--- NOTE | 2025-04-06 16:41 | MHC.PC.OV ---
Vital Signs 04/06/25 16:41 Height 5 ft 2 in Weight 137 lb BMI 25.1 BP 118/70 Blood Pressure Location Lt brachial Position Sitting Pulse 70 Pulse Source Pulse Oximeter Pulse Oximetry (%) 98 Oxygen Delivery Method Room Air Intake Visit Reasons: Pain on right side Intake Note: Requesting refill on inhaler Allergies No Known Allergies Allergy (Verified 04/06/25 16:41) Medication List - Last Reconciled 04/06/25 by Raheem Cazares MD hydroxyzine HCl 25 mg PO BID PRN 30 days hydroxyzine HCl 50 mg PO BID 30 days Ventolin HFA 90 mcg/actuation (albuterol sulfate) 2 puffs inhalation Q6H PRN 30 days NS Tobacco use date assessed: 04/06/25 Dental Screening Dental Screen Date: 04/06/25 Did you have a dental visit in the last 12 months?: No Did you have a dental problem in the last 6 months where you did not have access to dental care?: No Was dental information given to patient?: Patient has dentist HPI HPI Comments History of Present Illness Details The patient is a 29-year-old female presenting with right-sided abdominal pain. The pain occurs when there is pressure on the right side, such as during intercourse, lying on her side, or exercising. The pain is described as severe and persistent, occurring daily. The patient reports irregular menstruation since discontinuing control, with occurrences sometimes twice a month. She has a regular MANUAL LATHE MACHINIST whom she visits twice a year, and she recently had a Pap smear. The MANUAL LATHE MACHINIST advised her to consult her primary care physician regarding the pain, and no ultrasound was performed. The patient experiences constipation and has a history of bowel issues. She has modified her diet by eliminating pork and dairy, which has reduced her symptoms. She continues to consume bread daily, which may contribute to her constipation. [facility] Medical History (Updated 04/06/25 @ 16:58 by Raheem Cazares MD) Abnormal Pap smear of cervix Hypovitaminosis D Transaminitis Mild persistent asthma SUPRIYA (generalized anxiety disorder) Mild recurrent major depression Obese Depression with anxiety Surgical History No pertinent past surgical history Family History Father In good health Mother Prediabetes Maternal Grandfather Lung cancer Social History Housing: Apartment Alcohol intake: never Patient Tobacco Use Status: Never used Tobacco Tobacco use type: Cigarette e-Cigarette/Vaping Use: Never Used Second Hand Smoke Exposure: No service: No Current occupational status: employed Current occupational exposures/hazards: No Sexual orientation: Straight/Heterosexual Gender identity: Female Cognitive needs: No Hearing needs: No Vision needs: Yes Questionnaire PHQ-9 Over the last 2 weeks, how often have you been bothered by any of the following problems? 1. Little interest or pleasure in doing things: several days 2. Feeling down, depressed, or hopeless: several days 3. Trouble falling or staying asleep, or sleeping too much: nearly every day 4. Feeling tired or having little energy: nearly every day 5. Poor appetite or overeating: several days 6. Feeling bad about yourself - or that you are a failure or have let yourself or your family down: more than half the days 7. Trouble concentrating on things, such as reading the newspaper or watching television: several days 8. Moving or speaking so slowly that other people could have noticed. Or the opposite - being so fidgety or restless that you have been moving around a lot more than usual: not at all 9. Thoughts that you would be better off or of hurting yourself in some way: not at all Total score: 12 Depression Screening Interpretation: Positive Depression Screening Done: Yes Source: Developed by Drs. Dusty Leyva, Alma Koch, Fady Luna and colleagues, with an educational kaila from [employer]. Thrive Questionnaire Date Thrive assessed: 04/06/25 I am a: Patient What is your living situation today?: I have a steady place to live Within the past 12 months, did the food you bought not last and you didn't have the money to get more?: Sometimes True Within the past 12 months, did you worry whether your food would run out before you got money to buy more?: Sometimes True Do you have trouble paying for medicines?: No Do you have trouble getting transportation to medical appointments?: No Do you have trouble paying your heating and electricity bill?: Yes Do you have trouble taking care of your child, family member or friend?: No Do you have trouble with day-to-day activities such as bathing, preparing meals, shopping, managing finances, etc.?: No Are you currently unemployed and looking for a job?: No Are you interested in more education?: No Please select the resources that you would like help with: Utilities Currently or been in a relationship where the following occur: No concerns reported THRIVE Score: 3 AUDIT C Alcohol Use Questionnaire (AUDIT-C) 1. How often do you have a drink containing alcohol?: Never 3. How often do you have six or more drinks on one occasion?: Never Total Score: 0 SUPRIYA-7 AMB Questionnaire SUPRIYA-7 Date SUPRIYA - 7 assessed: 04/06/25 Feeling nervous, anxious, or on edge: 3 = Nearly every day Not being able to stop or control worryin = Nearly every day Worrying too much about different things: 3 = Nearly every day Trouble relaxin = Nearly every day Being so restless that it is hard to sit still: 3 = Nearly every day Becoming easily annoyed or irritable: 3 = Nearly every day Feeling afraid as if something awful might happen: 3 = Nearly every day Total SUPRIYA-7 score (0-4 normal; 5-9 mild; 10-14 moderate; 15-21 severe): 21 Source: Developed by Drs. Dusty Leyva, Alma Koch, Fady Luna and colleagues, with an educational kaila from [employer]. Review of Systems Const Details: Positives besides what was mentioned in HPI are in BOLD Constitutional: No Weight Change, No Fever, No Chills, No Night Sweats, No Fatigue, No Malaise ENT/Mouth: No Hearing Changes, No Ear Pain, No Nasal Congestion, No Sinus Pain, No Hoarseness, No sore throat, No Rhinorrhea, No Swallowing Difficulty Eyes: No Eye Pain, No Swelling, No Redness, No Foreign Body, No Discharge, No Vision Changes Cardiovascular: No Chest Pain, No SOB, No PND, No Dyspnea on Exertion, No Orthopnea, No Claudication, No Edema, No Palpitations Respiratory: No Cough, No Sputum, No Wheezing, No Smoke Exposure, No Dyspnea Gastrointestinal: No Nausea, No Vomiting, No Diarrhea, No Constipation, No Pain, No Heartburn, No Anorexia, No Dysphagia, No Hematochezia, No Melena, No Flatulence, No Jaundice Genitourinary: No Dysmenorrhea, No DUB, No Dyspareunia, No Dysuria, No Urinary Frequency, No Hematuria, No Urinary Incontinence, No Urgency, No Flank Pain, No Urinary Flow Changes, No Hesitancy Musculoskeletal: No Arthralgias, No Myalgias, No Joint Swelling, No Joint Stiffness, No Back Pain, No Neck Pain, No Injury History Skin: No Skin Lesions, No Pruritis, No Hair Changes, No Breast/Skin Changes, No Nipple Discharge Neuro: No Weakness, No Numbness, No Paresthesias, No Loss of Consciousness, No Syncope, No Dizziness, No Headache, No Coordination Changes, No Recent Falls Psych: No Anxiety/Panic, No Depression, No Insomnia, No Personality Changes, No Delusions, No Rumination, No SI/HI/AH/VH, No Social Issues, No Memory Changes, No Violence/Abuse Hx., No Eating Concerns Heme/Lymph: No Bruising, No Bleeding, No Transfusions History, No Lymphadenopathy Endocrine: No Polyuria, No Polydipsia, No Temperature Intolerance Physical exam (Primary Care) Vital Signs: Last Vital Signs Pulse 70 04/06/25 16:41 BP 118/70 04/06/25 16:41 Pulse Ox 98 04/06/25 16:41 Oxygen Delivery Method Room Air 04/06/25 16:41 BMI result Body Mass Index 25.1 Tobacco/Smoking Status: Tobacco use Status Tobacco use date assessed 04/06/25 04/06/25 16:45 Patient Tobacco Use Status Never used Tobacco 04/06/25 16:45 Tobacco use type Cigarette 04/06/25 16:45 e-Cigarette/Vaping Use Never Used 04/06/25 16:45 PHQ-9: PHQ-9 Score PHQ-9: Total score 12 04/06/25 16:45 Depression Screening Interpretation: Positive Thrive Assessment: Date of Thrive Assessment Date Thrive assessed 04/06/25 04/06/25 16:45 Currently or been in a relationship where the following occur: No concerns reported Coding Level of Care Code Est Pt Level 3 (35789) Diagnoses Right sided abdominal pain R10.9 Time Spent (min) 20 Assessment & Plan Assessment & Plan (1) Right sided abdominal pain: Code(s): R10.9 - Unspecified abdominal pain Category: Medical Plan: Patient reports pain exacerbated by intercourse and movements. She denies any systemic symptoms. - Plan to perform a pelvic ultrasound, and abdominal ultrasound to investigate potential uterine or ovarian causes. - Consider symptomatic treatment if ultrasound results are inconclusive. Plan I discussed with the patient the plan to perform a pelvic ultrasound to investigate the cause of her right-sided abdominal pain, which may be related to uterine or ovarian issues. We also talked about the possibility of symptomatic treatment if the ultrasound does not reveal any significant findings. The patient was advised to monitor her menstrual cycle and follow up with her MANUAL LATHE MACHINIST as needed. Dietary modifications were suggested to address constipation, including reducing bread intake and considering gluten-free options.
== END 2025-04-06 17:04 | disposition home or self-care (01) ==
LOC: HO.HMCH 16:32
PROVIDERS: PCP Internal Medicine; Visit Provider Internal Medicine
DX: R10.9 Unspecified abdominal pain (principal)

== ENCOUNTER 2025-06-11 08:48 | Outpatient (REF) | payer OTHER, SELFPAY ==
--- NOTE | ~2025-06-11 | US_ITS ---
CLINICAL HISTORY: R10.9 - Unspecified abdominal pain US abdomen complete with color Doppler Comparison: None Findings: The visualized pancreas, aorta, and inferior vena cava are unremarkable. Liver normal size and echotexture. Right lobe 12.1 cm length. No focal hepatic masses. Common duct 2.0 mm diameter. Physiologic distention of the gallbladder. No gallstones or sludge. No gallbladder wall thickening. No pericholecystic fluid. No sonographic Mejia sign. Main portal vein antegrade. Right kidney normal size, 9.4 cm in length. Normal cortical width and echotexture. No solid or cystic renal masses. No nephrolithiasis. No hydronephrosis. Left kidney normal, 10.2 cm in length. Normal cortical width and echotexture. No solid or cystic renal masses. No nephrolithiasis. No hydronephrosis. Spleen measures 10.2 cm. No splenic masses. No ascites. No lymphadenopathy. Impression: 1. Normal abdominal ultrasound. This document has been electronically signed by: Dimitris Sears MD on 06/11/2025 13:07:10
--- NOTE | ~2025-06-11 | US_ITS ---
CLINICAL HISTORY: R10.9 - Unspecified abdominal pain US pelvis transabdominal and transvaginal with color Doppler Comparison: None Findings: Transabdominal scanning performed for overall anatomy. Transvaginal scanning performed for additional detail. LMP: Currently undergoing menses Anteverted uterus, normal size and echotexture, measuring 8.0 x 2.7 x 3.2 cm. Well defined endometrium, measuring 3.0 mm in thickness. The right ovary measures, 3.9 x 3.1 x 3.0 cm. Normal sonographic appearance right ovary. Normal color Doppler of the ovary The left ovary measures, 3.7 x 2.5 x 2.2 cm. 3 mm equivocal echogenic lesion within the ovary possible dermoid.Normal color Doppler of the ovary. No adnexal masses or fluid collections. No free fluid Impression: 1. Normal uterus. Normal thickness well-defined homogeneous endometrium 2. Normal right ovary/ adnexa 3. Equivocal ovarian dermoid left ovary. This document has been electronically signed by: Dimitris Sears MD on 06/11/2025 12:00:08
== END 2025-06-11 08:49 | disposition home or self-care (01) ==
LOC: HO.US 08:48
PROVIDERS: PCP Internal Medicine; Visit Provider Internal Medicine
DX: R10.11 Right upper quadrant pain (principal); R10.31 Right lower quadrant pain; R10.12 Left upper quadrant pain; R10.32 Left lower quadrant pain
CPT/HCPCS: 76700; 76830; 76856

== ENCOUNTER → 2025-06-11 08:51 | Outpatient (BNV) | payer OTHER, SELFPAY | PROVIDERS: PCP Internal Medicine; Visit Provider Radiology Diagnostic Radiology | DX: R10.9 Unspecified abdominal pain (principal); D27.1 Benign neoplasm of left ovary | CPT/HCPCS: 76700; 76830; 76856 ==

== ENCOUNTER 2025-06-17 11:43 | Outpatient (AMB) | payer OTHER, SELFPAY ==
--- NOTE | 2025-06-17 11:53 | MHC.OFFVIS ---
Vital Signs 06/17/25 11:55 Height 5 ft 2 in Weight 137 lb BMI 25.1 BP 110/64 Intake Visit Reasons: ultrasound results Tourist Adviser Required: No Information Interpreted: non-clinical & clinical Accompanied by: Self / Same As Patient Allergies No Known Allergies Allergy (Verified 06/17/25 11:56) HPI Comments Details: Presenting complaining of left size is pelvic pain during intercourse last 2 months associated with irregular menstrual cycle, no urinary or GI symptoms no fever or chills 06/11/2025 pelvic ultrasound showed the following: Anteverted uterus, normal size and echotexture, measuring 8.0 x 2.7 x 3.2 cm. Well defined endometrium, measuring 3.0 mm in thickness. The right ovary measures, 3.9 x 3.1 x 3.0 cm. Normal sonographic appearance right ovary. Normal color Doppler of the ovary The left ovary measures, 3.7 x 2.5 x 2.2 cm. 3 mm equivocal echogenic lesion within the ovary possible dermoid.Normal color Doppler of the ovary. No adnexal masses or fluid collections. No free fluid Last Co testing in 03/02 was negative FOR[facility] Medical History Abnormal Pap smear of cervix Hypovitaminosis D Transaminitis Mild persistent asthma SUPRIYA (generalized anxiety disorder) Mild recurrent major depression Obese Depression with anxiety Surgical History No pertinent past surgical history Family History Father In good health Mother Prediabetes Maternal Grandfather Lung cancer Social History Housing: Apartment Alcohol intake: never Patient Tobacco Use Status: Never used Tobacco Tobacco use type: Cigarette e-Cigarette/Vaping Use: Never Used Second Hand Smoke Exposure: No service: No Current occupational status: employed Current occupational exposures/hazards: No Sexual orientation: Straight/Heterosexual Gender identity: Female Cognitive needs: No Hearing needs: No Vision needs: Yes Physical Exam Vital Signs: Last Vital Signs BP 110/64 06/17/25 11:55 BMI result Body Mass Index 25.1 Results AMB Test Urine AMB Test Urine Negative Last Edit by Margo Vega LPN on 06/17/25 12:15 Results Reviewed Results Reviewed: Laboratory Last Values [facility] Clinic Negative 06/17/25 12:15 Assessment & Plan Assessment & Plan (1) Pelvic pain: Code(s): R10.20 - Pelvic and perineal pain unspecified side Category: Medical Plan: Urinepregnancy test done in the office was negative. GC and chlamydia taken and pelvic ultrasound recently done. Discussed with the patient the differential diagnosis of pelvic pain including but not limited to adnexal, uterine masses, pelvic infections (PID), GI the (Irritable bowel syndrome, diverticulitis, others), musculoskeletal, myofascial pain abdominal wall , adhesions, endometriosis, psychological and others causes. Will check results and treat accordingly. All questions answered, the patient verbalized understanding. Instructed the patient to schedule a follow-up appointment in 2 weeks. All questions answered, the patient verbalized understanding and agreed with the plan. (2) Complex cyst of left ovary: Code(s): N83.292 - Other ovarian cyst, left side Category: Medical Plan: Discussed with the patient the finding on ultrasound possible left dermoid ovarian cyst, will order MRI of the pelvis and treat accordingly. Instructions given the patient is schedule follow-up appointment within 2 weeks (3) Abnormal uterine bleeding (AUB): Code(s): N93.9 - Abnormal uterine and vaginal bleeding, unspecified Category: Medical Plan: GC and chlamydia taken CBC, TSH, HCG, ordered. Discussed with the patient the different causes of abnormal bleeding including thyroid disorders, uterine and ovarian pathology, and other potential causes. Discussed with the patient the work up including CBC (to r/o anemia), TSH, pelvic Ultrasound. All questions answered and the patient verbalized understanding. Instructed the patient to schedule an appointment for an endometrial biopsy in 2 weeks. (4) Microscopic hematuria: Code(s): R31.29 - Other microscopic hematuria Category: Medical Plan: Urine dip showed microscopic hematuria, urine culture sent. Will repeat urine dip in 2 weeks. Discussed with the patient the possible causes of microscopic hematuria including but not limited to: interstitial cystitis, polyps, stones, masses, urethral inflammatory processes and others. If Urine Culture is negative and repeat urine dip in 2 weeks shows persistent microscopic hematuria, will proceed with CT abdomen/pelvis and urology referral. Instructions given the patient to schedule a 2 week urine dip follow-up appointment. All questions answered and the patient verbalized understanding. Orders: Orders TSH reflex Free T4 Today N93.9 - Abnormal uterine and vaginal bleeding, unspecified HCG Quantitative Today N93.9 - Abnormal uterine and vaginal bleeding, unspecified MR pelvis wo/w con Today N83.299 - Other ovarian cyst, unspecified side CT NG by PCR Vag/Cerv Today N89.8 - Other specified noninflammatory disorders of vagina, R10.20 - Pelvic and perineal pain unspecified side Complete Blood Count no Diff Today N93.9 - Abnormal uterine and vaginal bleeding, unspecified Coding Level of Care Code Est Pt Level 3 (94477) Diagnoses Pelvic pain R10.20 Complex cyst of left ovary N83.292 Abnormal uterine bleeding (AUB) N93.9 Microscopic hematuria R31.29
[2025-06-17 11:55] VITALS: BP 110/64; BMI 25.1
== END 2025-06-17 12:30 | disposition home or self-care (01) ==
LOC: HO.HWS 11:44
PROVIDERS: PCP Internal Medicine; Visit Provider Obstetrics & Gynecology
DX: R10.20 Pelvic and perineal pain unspecified side (principal); N83.292 Other ovarian cyst, left side; N93.9 Abnormal uterine and vaginal bleeding, unspecified; R31.29 Other microscopic hematuria
CPT/HCPCS: 99213

== ENCOUNTER 2025-06-17 11:43 | Outpatient (REF) | payer OTHER, SELFPAY ==
[2025-06-17 13:35] LABS: Hematocrit 37.3 % (37.0-47.0); Hemoglobin 12.6 g/dl (12.0-16.0); Mean Corpuscular HGB Conc 33.8 g/dl (31.0-35.0); Mean Corpuscular Hemoglobin 28.1 pg (27.0-33.0); Mean Corpuscular Volume 83.1 fL (80.0-98.0); NRBC Abs Auto 0.000 X10*3/uL (0.0-0.012); NRBC Pct Auto 0.0 /100WBC (0.0-0.2); Platelet Count 221 X10*3/uL (160-400); Red Blood Count 4.49 X10*6/uL (4.20-5.50); White Blood Count 6.9 X10*3/uL (4.8-10.8)
[2025-06-17 15:15] LABS: Appearance Urine Clear; Glucose Urine UA Negative (Negative); PH 6.0 (5.0-9.0); Specific Gravity - Urine 1.025 (1.005-1.025); UMIC TRIGGER UA YES
[2025-06-19 15:50] LABS: CT PCR NOT DETECTED (Not Detect.); NG PCR NOT DETECTED (Not Detect.)
== END 2025-06-17 11:44 | disposition home or self-care (01) ==
LOC: HO.LNP 11:43
PROVIDERS: PCP Internal Medicine; Visit Provider Obstetrics & Gynecology
DX: N83.292 Other ovarian cyst, left side (principal); N93.9 Abnormal uterine and vaginal bleeding, unspecified; N89.8 Other specified noninflammatory disorders of vagina; Z20.2 Contact with and (suspected) exposure to infections with a predominantly sexual mode of transmission; Z13.29 Encounter for screening for other suspected endocrine disorder; R31.29 Other microscopic hematuria
CPT/HCPCS: 81001; 81002; 81003; 84443; 84702; 85027; 87491; 87591